=== PATIENT | female | born 1975 | race Caucasian/White ===

== ENCOUNTER → 2019-05-11 | Outpatient (CLI) | payer OTHER | END | disposition home or self-care (01) | LOC: RAD 10:35 | DX: R09.81 Nasal congestion (principal); R05 Cough; R09.89 Other specified symptoms and signs involving the circulatory and respiratory systems; R68.89 Other general symptoms and signs ==

== ENCOUNTER → 2019-12-14 | Outpatient (CLI) | payer OTHER | LOC: COVID19 00:57 | PROVIDERS: ATTEND Nurse Practitioner Family | DX: R05 Cough (principal); R09.81 Nasal congestion; Z20.828 Contact with and (suspected) exposure to other viral communicable diseases ==